=== PATIENT | male | born 1970 ===

== ENCOUNTER → 2018-09-17 23:26 | Outpatient (REF) | payer SELFPAY ==
[2018-09-18 00:33] LABS: Thyroid Stimulating Hormone 4.88 uIU/mL (0.47-4.68)
[2018-09-18 02:26] LABS: Cholesterol 224 mg/dL (140-199); HDL Cholesterol 51 mg/dL (40-60); LDL Cholesterol Calculated 155 mg/dL (<100); Triglycerides 88 mg/dL (35-150)
[2018-09-18 02:44] LABS: Free T3, Triiodothyronine Free 6.08 pg/mL (2.77-5.27); Free T4, Direct Thyroxine 1.05 ng/dL (0.78-2.19)
== END ==
LOC: LAB 23:26
PROVIDERS: Visit Provider Naturopath
DX: E03.9 Hypothyroidism, unspecified (principal); E78.5 Hyperlipidemia, unspecified
CPT/HCPCS: 36415; 80061; 84439; 84443; 84481